=== PATIENT | female | born 1960 | race Caucasian/White ===

== ENCOUNTER → 2018-04-14 | Outpatient (CLI) | payer OTHER ==
[~2018-04-14] MED LIST: METPRE4DP PO; Percocet 5-3251 EACH PO; Valium5 MG PO
[2018-04-14 15:23] LABS: BASOPHILS ABSOLUTE AUTO 0.02 K/mm3 (0.00-0.23); BASOPHILS PERCENT AUTO 0 % (0-2); EOSINOPHILS ABSOLUTE AUTO 0.06 K/mm3 (0.00-0.68); EOSINOPHILS PERCENT AUTO 1 % (0-6); Hematocrit 44.9 % (33.0-51.0); Hemoglobin 15.4 g/dL (11.5-16.0); IMMATURE GRAN ABSOLUTE AUTO 0.03 K/mm3 (0.00-0.10); IMMATURE GRAN PERCENT AUTO 0 % (0-1); LYMPHOCYTES ABSOLUTE AUTO 2.43 K/mm3 (0.84-5.20); LYMPHOCYTES PERCENT AUTO 30 % (21-46); MONOCYTES ABSOLUTE AUTO 0.46 K/mm3 (0.16-1.47); MONOCYTES PERCENT AUTO 6 % (4-13); Mean Corpuscular HGB 29.7 pg (26.0-34.0); Mean Corpuscular HGB Conc 34.3 g/dL (31.5-36.5); Mean Corpuscular Volume 87 fL (80-100); Mean Platelet Volume 9.7 fL (9.1-12.4); NEUTROPHILS ABSOLUTE AUTO 5.08 K/mm3 (1.96-9.15); NEUTROPHILS PERCENT AUTO 63 % (41-73); Platelet Count 234 K/mm3 (150-400); RDW Coefficient Variation 12.9 % (11.7-14.2); RDW Standard Deviation 40.5 fL (35.1-46.3); Red Blood Cell Count 5.18 M/mm3 (3.80-5.20); White Blood Cell Count 8.08 K/mm3 (4.00-11.30)
[2018-04-14 15:35] LABS: Alanine Aminotransfer (ALT/SGP 22 U/L (12-78); Albumin, Blood 4.2 g/dL (3.4-5.0); Albumin/Globulin Ratio 1.2 (0.8-1.8); Alk Phos 73 U/L (40-126); Anion Gap 9 mmol/L (6-16); Aspartate Aminotrans (AST/SGOT 16 U/L (12-37); Bilirubin, Total 0.5 mg/dL (0.1-1.0); Blood Urea Nitrogen 15 mg/dL (8-24); Bun/Creatinine Ratio 16.5 (12.0-20.0); CO2, Blood 26 mmol/L (21-32); Calcium, Blood 8.9 mg/dL (8.5-10.1); Chloride, Blood 106 mmol/L (98-108); Creatinine, Blood 0.91 mg/dL (0.40-1.00); Globulin, Blood 3.4 g/dL (2.2-4.0); Glomerular Filtration Rate >60 (60-); Glucose, Blood 87 mg/dL (70-99); Potassium, Blood 3.9 mmol/L (3.5-5.5); Sodium, Blood 141 mmol/L (136-145); Total Protein, Blood 7.6 g/dL (6.4-8.2)
== END ==
LOC: LAB EV 15:17 → LAB SHORT 15:17
PROVIDERS: Nurse Practitioner
DX: R10.9 Unspecified abdominal pain (principal)
CPT/HCPCS: 80053; 83690; 85025

== ENCOUNTER → 2018-12-06 | Outpatient (CLI) | payer OTHER | END | disposition home or self-care (01) | LOC: LAB EV 15:45 → LAB SHORT 15:45 | DX: R30.0 Dysuria (principal) | CPT/HCPCS: 87077; 87086; 87186 ==

== ENCOUNTER → 2019-10-19 | Outpatient (CLI) | payer OTHER | LOC: LAB SHORT 16:25 | DX: N12 Tubulo-interstitial nephritis, not specified as acute or chronic (principal) | CPT/HCPCS: 87077; 87086; 87186 ==

== ENCOUNTER 2020-10-07 10:43 | Emergency (ER) | payer OTHER ==
[~2020-10-07] VITALS: Ht 162.6 cm; Wt 81.7 kg
[2020-10-07 11:23] LABS: BASOPHILS ABSOLUTE AUTO 0.04 K/mm3 (0.00-0.23); BASOPHILS PERCENT AUTO 0 % (0-2); EOSINOPHILS ABSOLUTE AUTO 0.08 K/mm3 (0.00-0.68); EOSINOPHILS PERCENT AUTO 1 % (0-6); Hematocrit 43.8 % (33.0-51.0); Hemoglobin 14.2 g/dL (11.5-16.0); IMMATURE GRAN ABSOLUTE AUTO 0.06 K/mm3 (0.00-0.10); IMMATURE GRAN PERCENT AUTO 1 % (0-1); LYMPHOCYTES ABSOLUTE AUTO 1.68 K/mm3 (0.84-5.20); LYMPHOCYTES PERCENT AUTO 18 % (21-46); MONOCYTES ABSOLUTE AUTO 0.54 K/mm3 (0.16-1.47); MONOCYTES PERCENT AUTO 6 % (4-13); Mean Corpuscular HGB 29.8 pg (26.0-34.0); Mean Corpuscular HGB Conc 32.4 g/dL (31.5-36.5); Mean Corpuscular Volume 92 fL (80-100); Mean Platelet Volume 9.4 fL (9.1-12.4); NEUTROPHILS ABSOLUTE AUTO 7.07 K/mm3 (1.96-9.15); NEUTROPHILS PERCENT AUTO 75 % (41-73); Platelet Count 261 K/mm3 (150-400); RDW Coefficient Variation 12.5 % (11.7-14.2); RDW Standard Deviation 42.5 fL (35.1-46.3); Red Blood Cell Count 4.76 M/mm3 (3.80-5.20); White Blood Cell Count 9.47 K/mm3 (4.00-11.30)
[2020-10-07 11:41] LABS: Alanine Aminotransfer (ALT/SGP 29 U/L (12-78); Albumin, Blood 3.9 g/dL (3.4-5.0); Albumin/Globulin Ratio 1.1 (0.8-1.8); Alk Phos 76 U/L (50-136); Anion Gap 7 mmol/L (6-16); Aspartate Aminotrans (AST/SGOT 13 U/L (12-37); Bilirubin, Total 0.4 mg/dL (0.1-1.0); Blood Urea Nitrogen 19 mg/dL (8-24); Bun/Creatinine Ratio 19.5 (12.0-20.0); CO2, Blood 27 mmol/L (21-32); Calcium, Blood 9.1 mg/dL (8.5-10.1); Chloride, Blood 108 mmol/L (98-108); Creatinine, Blood 0.98 mg/dL (0.40-1.00); Globulin, Blood 3.5 g/dL (2.2-4.0); Glomerular Filtration Rate >60 (60-); Glucose, Blood 125 mg/dL (70-99); Potassium, Blood 4.3 mmol/L (3.5-5.5); Sodium, Blood 142 mmol/L (136-145); Total Protein, Blood 7.4 g/dL (6.4-8.2)
[2020-10-07] MEDS ORDERED: LOSA25 (13:23)
[2020-10-07] MEDS ORDERED: BUPROPION XL150 M1 PO (13:23)
[2020-10-07] MEDS ORDERED: COREG25 MG PO (13:23)
[2020-10-07] MEDS ORDERED: MECL25 PO (13:26)
== END 2020-10-07 13:50 | disposition home or self-care (01) ==
LOC: ER 10:43
PROVIDERS: Emergency Medicine
DX: R42 Dizziness and giddiness (principal); F17.200 Nicotine dependence, unspecified, uncomplicated; Z79.899 Other long term (current) drug therapy; Z88.6 Allergy status to analgesic agent; Z88.0 Allergy status to penicillin
CPT/HCPCS: 36415; 70450; 80053; 82947; 85025; 93005; 93010; 99284-25; A9270

== ENCOUNTER → 2022-03-04 | Outpatient (CLI) | payer OTHER ==
[~2022-03-04] MED LIST changes: +BUPROPION XL150 M1 PO; +COREG25 MG PO; +LOSA25; +MECL25 PO
== END | disposition home or self-care (01) ==
LOC: LAB SHORT 14:59 → LAB 14:59
DX: R30.9 Painful micturition, unspecified (principal)
CPT/HCPCS: 87077; 87086; 87186

== ENCOUNTER 2023-05-02 10:02 | Emergency (ER) | payer OTHER ==
[~2023-05-02] VITALS: Ht 162.6 cm; Wt 79.4 kg
[2023-05-02 13:04] VITALS: BP 128/90
[2023-05-02] MEDS ORDERED: MECL25 PO (13:12)
== END 2023-05-02 13:18 | disposition home or self-care (01) ==
LOC: ER 10:02
DX: R42 Dizziness and giddiness (principal); E86.1 Hypovolemia; I95.9 Hypotension, unspecified; I10 Essential (primary) hypertension; F17.200 Nicotine dependence, unspecified, uncomplicated; Z88.8 Allergy status to other drugs, medicaments and biological substances; Z88.0 Allergy status to penicillin; Z79.899 Other long term (current) drug therapy
CPT/HCPCS: A9270; J7030

== ENCOUNTER 2023-09-16 06:54 | Day surgery (SDC) | payer OTHER ==
[~2023-09-16] VITALS: Ht 162.6 cm; Wt 75.2 kg
[~2023-09-16 06:54] MED LIST changes: +ESCI10; +EUTHYROX125 MCG
[2023-09-16] MEDS ORDERED: EUTHYROX100 MC1 (07:28)
[2023-09-16] MEDS ORDERED: Adipex-P37.5 M1 (07:28)
[2023-09-16] MEDS ORDERED: FLUT1DIS5 (07:29)
[2023-09-16] MEDS ORDERED: Ventolin5 MG/1 ML (07:29)
[2023-09-16] MEDS ORDERED: ALBU90OI (07:30)
[2023-09-16 08:55] VITALS: BP 132/90
== END 2023-09-16 08:52 | disposition home or self-care (01) ==
LOC: ORSCSDS 06:54
PROVIDERS: Specialist
PROC: 0DJD8ZZ Inspection of Lower Intestinal Tract, Via Natural or Artificial Opening Endoscopic (ICD-10-PCS; principal; 2023-09-16 08:00)
DX: Z12.11 Encounter for screening for malignant neoplasm of colon (principal); R19.5 Other fecal abnormalities; E03.9 Hypothyroidism, unspecified; J44.9 Chronic obstructive pulmonary disease, unspecified; F41.9 Anxiety disorder, unspecified; F32.9 Major depressive disorder, single episode, unspecified; E78.5 Hyperlipidemia, unspecified; I10 Essential (primary) hypertension; Z87.891 Personal history of nicotine dependence; Z79.899 Other long term (current) drug therapy
CPT/HCPCS: J2704; J7120

== ENCOUNTER → 2023-10-31 | Outpatient (CLI) | payer OTHER ==
[~2023-10-31] MED LIST changes: +ALBU90OI; +Adipex-P37.5 M1; +EUTHYROX100 MC1; +FLUT1DIS5; +Ventolin5 MG/1 ML
== END | disposition home or self-care (01) ==
LOC: LAB SHORT 17:33
DX: N39.0 Urinary tract infection, site not specified (principal)
CPT/HCPCS: 87077; 87086; 87186

== ENCOUNTER → 2024-04-23 | Outpatient (CLI) | payer OTHER | END | disposition home or self-care (01) | LOC: LAB 09:30 → LAB SHORT 09:30 | DX: R30.9 Painful micturition, unspecified (principal) | CPT/HCPCS: 87077; 87086; 87186 ==

== ENCOUNTER → 2024-12-24 | Outpatient (CLI) | payer OTHER | LOC: LAB SHORT 09:30 → LAB 09:30 | DX: N39.0 Urinary tract infection, site not specified (principal) | CPT/HCPCS: 87077; 87086; 87186 ==

== ENCOUNTER → 2025-01-23 | Outpatient (CLI) | payer MEDICARE | LOC: LAB 15:29 → LAB SHORT 15:29 | DX: N39.0 Urinary tract infection, site not specified (principal) | CPT/HCPCS: 87077; 87086; 87186 ==